=== PATIENT | male | born 1960 | race Caucasian/White ===

== ENCOUNTER 2016-08-30 17:15 | Emergency (ER) | payer MEDICARE, MEDICAID ==
[2016-08-30 17:49] VITALS: BP 137/100
[2016-08-30] MEDS ORDERED: Tetan/Diph/Pertus SYR(Tdap)* 0.5 ML SYR(BOOSTRIX) use SYR IM ONE (19:38)
--- NOTE | 2016-09-08 09:15 | ED ---
Lower Extremity - HPI Summary HPI Summary: Patient complaining of right foot pain after he stepped on a piece of glass on friday. He believes that the glass is stuck inside his right foot, he was sent here for an xray from [facility]. He states he came to the ED because he still feels the glass in his foot. He denies bleeding or pain, stating he just feels funny. Denies taking any medication or attempting to dislodge the piece. - History of Current Complaint Chief Complaint: EDExtremityLower Stated Complaint: RIGHT FOOT LAC/GLASS IN FOOT Time Seen by Provider: 08/30/16 19:30 Hx Obtained From: Patient Mechanism Of Injury: Penetrating Trauma Onset of Pain: Immediate Onset/Duration: Days Severity Initially: Mild Severity Currently: None Pain Intensity: 0 Pain Scale Used: 0-10 Numeric Timing: Constant Location: Is Discrete @ - right plantar of foot Character Of Pain: Dull Associated Signs And Symptoms: Positive: Negative Aggravating Factor(s): Standing, Ambulation Alleviating Factor(s): Rest Able to Bear Weight: Yes - Risk Factors Gout Risk Factors: Age Over 40, Male DVT Risk Factors: Negative Septic Arthritis Risk Factor: Negative - Allergies/Home Medications Allergies/Adverse Reactions: Allergies Allergy/AdvReac Type Severity Reaction Status Date / Time No Known Allergies Allergy Verified 05/22/15 15:45 PMH/Surg Hx/FS Hx/Imm Hx Previously Healthy: Yes Endocrine/Hematology History: Denies: Hx Diabetes Cardiovascular History: Denies: Hx Hypertension History: Denies: Hx Renal Disease - Cancer History Cancer Type, Location and Year: BLADDER 1996 - Surgical History Surgery Procedure, Year, and Place: Appendectomy age 8, bladder surgery 1996, abscesses removed from right middle back 2 months ago Infectious Disease History: No Infectious Disease History: Denies: Traveled Outside the [place] in Last 30 Days - Family History Known Family History: Positive: Cardiac Disease, Hypertension - Social History Occupation: Employed Full-time Lives: Alone Alcohol Use: None Hx Substance Use: No Substance Use Type: Reports: None Hx Tobacco Use: Yes Smoking Status (MU): Current Every Day Smoker Review of Systems Constitutional: Negative Eyes: Negative Cardiovascular: Negative Respiratory: Negative Genitourinary: Negative Positive: no symptoms reported, see HPI Musculoskeletal: Negative Positive: Arthralgia Positive: Other - small FB sensation over right plantar of foot Neurological: Negative All Other Systems Reviewed And Are Negative: Yes Physical Exam Triage Information Reviewed: Yes Vital Signs On Initial Exam: Initial Vitals Temp Pulse Resp BP Pulse Ox 97.7 F 107 18 137/100 99 08/30/16 17:46 08/30/16 17:46 08/30/16 17:46 08/30/16 17:46 08/30/16 17:46 Vital Signs Reviewed: Yes Appearance: Positive: Well-Appearing, No Pain Distress, Well-Nourished Skin: Positive: Warm, Skin Color Reflects Adequate Perfusion, Other - FB sensation in plantar of foot. no FB seen by provider Head/Face: Positive: Normal Head/Face Inspection Eyes: Positive: EOMI, HIMANSHU, Conjunctiva Clear Neck: Positive: Supple, Nontender, No Lymphadenopathy Respiratory/Lung Sounds: Positive: Clear to Auscultation, Breath Sounds Present Cardiovascular: Positive: Normal, RRR, Pulses are Symmetrical in both Upper and Lower Extremities Musculoskeletal: Positive: Normal, Strength/ROM Intact Neurological: Positive: Normal, Sensory/Motor Intact, Alert, Oriented to Person Place, Time Psychiatric: Positive: Normal AVPU Assessment: Alert Procedures - Procedure Summary Procedure Summary: Lidocaine without epi 1% used for local anesthetic. 15 blade scalpel to area of concern. Superficial exploration revealed no FB. Bandaged without need for sutures. Patient encouraged to follow up if signs of infection. Diagnostics - Vital Signs Vital Signs Temp Pulse Resp BP Pulse Ox 08/30/16 20:32 97.7 F 107 18 137/100 99 08/30/16 17:46 97.7 F 107 18 137/100 99 - Laboratory Lab Statement: Any lab studies that have been ordered have been reviewed, and results considered in the medical decision making process. Lower Extremity Course/Dx - Course Course Of Treatment: Patients wound was explored with 15 blade after local anesthetic applied. No FB seen. Patient OK for discharge and thinks possibly the glass shard had dislodged over the week. Patient encouraged to follow up with PCP and return if signs of infection. - Diagnoses Differential Diagnosis/HQI/PQRI: Positive: Cellulitis, Osteomyelitis, Puncture Wound, Other - foreign body Provider Diagnoses: Sensation of foreign body Discharge - Discharge Plan Condition: Stable Disposition: HOME Patient Education Materials: Soft Tissue Foreign Body (ED) Referrals: [facility] [Provider Group] Jesus Gagnon MD [Primary Care Provider] - Additional Instructions: There was nothing visualized in the foot. Continue with bandage for 2 days. Keep area dry and clean. Follow up with your primary care physician.
== END 2016-08-30 22:17 | disposition home or self-care (01) ==
LOC: ED 17:15
DX: S90.851A Superficial foreign body, right foot, initial encounter (principal); X58.XXXA Exposure to other specified factors, initial encounter; Y93.9 Activity, unspecified; Y92.9 Unspecified place or not applicable; Y99.9 Unspecified external cause status
CPT/HCPCS: 90471; 90715; 99282

== ENCOUNTER 2016-10-25 15:56 | Emergency (ER) | payer MEDICARE, MEDICAID ==
[2016-10-25] MEDS ORDERED: NS 0.9% 1000 ML* 1,000 ML IV ONE (16:39)
[2016-10-25 16:50] LABS: Hematocrit 44 % (42-52); Hemoglobin 14.9 g/dl (14.0-18.0); Mean Corpuscular HGB Conc 34 g/dl (31-36); Mean Corpuscular Hemoglobin 30 pg (27-31); Mean Corpuscular Volume 88 fL (80-94); Mean Platelet Volume 7 um3 (7.4-10.4); Red Blood Count 5.05 10^6/ul (4.0-5.4); Red Cell Distribution Width 14 % (10.5-15); White Blood Count 8.1 10^3/ul (3.5-10.8)
[2016-10-25 17:12] LABS: Albumin 4.2 g/dL (3.2-5.2); BUN/Creatinine Ratio 19.3 (8-20); C Reactive Protein 8.63 mg/L (< 5.00); EGFR African American 122.4 (>60); EGFR Non-African American 95.2 (>60); Globulin 2.6 g/dL (2-4); Total Bilirubin 0.6 mg/dL (0.2-1.0); Total Protein 6.8 g/dL (6.4-8.9)
[2016-10-25] MEDS ORDERED: Iohexol 300* (CONTRAST) 10 ML SDV IV ONE (17:21)
[2016-10-25 17:32] LABS: Potassium 4.1 mmol/L (3.5-5.0)
[2016-10-25 18:15] VITALS: BP 125/97
--- NOTE | 2016-10-25 18:49 | RAD ---
CLINICAL HISTORY: Abdominal pain COMPARISON: May 22, 2015 TECHNIQUE: Multiple contiguous axial CT scans were obtained of the abdomen and pelvis after the administration of intravenous contrast. Coronal and sagittal multiplanar reformations are submitted for review. Oral contrast was not administered. Delayed images were obtained through the abdomen and pelvis. FINDINGS: LUNG BASES: The lung bases are clear. LIVER: The liver is normal in shape, size, contour, and attenuation. BILE DUCTS: There is no intrahepatic or extrahepatic biliary dilatation. GALLBLADDER: The gallbladder is normal, without pericholecystic inflammatory change. PANCREAS: The pancreas is normal, without mass or ductal dilatation. SPLEEN: Normal in size and appearance. UPPER GI TRACT: Evaluation of the gastrointestinal tract is limited by incomplete gastric distention. The upper GI tract is unremarkable. SMALL BOWEL AND MESENTERY: The small bowel is normal in contour, course, and caliber. There is no obstruction or dilatation. COLON: There are scattered diverticula of the colon. There is no pericolonic inflammatory change. The appendix is not visualized. There is no inflammatory change in the right lower quadrant. ADRENALS: Normal bilaterally. KIDNEYS: Renal cysts are noted. There is no appreciable hydronephrosis or nephrolithiasis. BLADDER: The bladder is smooth in contour. PELVIC ORGANS: The prostate is diffusely enlarged. The seminal vesicles are symmetric. AORTA: There is calcific atherosclerotic disease of the abdominal aorta and its branches, without aneurysmal dilatation IVC: Unremarkable LYMPH NODES: There is no lymphadenopathy by size criteria. ABDOMINAL WALL: There is no evidence for abdominal wall hernia. BONES AND SOFT TISSUES: There are mild diffuse degenerative changes. OTHER: None IMPRESSION: 1. ENLARGED PROSTATE. 2. ATHEROSCLEROSIS. 3. NO ACUTE CT PATHOLOGY OF THE VISUALIZED ABDOMEN OR PELVIS
--- NOTE | 2016-10-26 17:07 | ED ---
[place] Shoemaker Rebecca, scribed for David Odonnell MD on 10/25/16 at 1617 . Abdominal Pain/Male - HPI Summary HPI Summary: Pt is a 56 y/o M who presents to ED c/o abdominal pain. Pain began gradually last Friday (almost 2 weeks ago) and has been intermittent since onset. Pain is currently in the L suprapubic region with radiation to the groin and down the LLE into the knee. Pain is currently not present, ranked 0/10, [facility] when it is present it is characterized as sharp. Sx aggravated by nothing, alleviated by oxycodone, which he reports as having resolved sx currently. Additionally c/ o cough and sore throat. Denies N/V/D, constipation, CP, SOB, fever and chills. Reports he has been following up with Dr. Juárez's office for similar sx, last being seen approximately 1 week ago. States he called yesterday and they advised him that if his pain did not improve, to be evaluated by the ED which is why he presents today. - History of Current Complaint Chief Complaint: EDAbdPain Stated Complaint: ABD PAIN Time Seen by Provider: 10/25/16 16:08 Hx Obtained From: Patient Onset/Duration: Gradual Onset, Lasting Weeks - 2 weeks, Resolved Timing: Intermittent Severity Initially: Moderate Severity Currently: None Pain Intensity: 0 Pain Scale Used: 0-10 Numeric Location: Suprapubic - Left Radiates: Yes Radiates to: Inguinal, Other - LLE down to the knee Aggravating Factor(s): Nothing Alleviating Factor(s): Medications - Oxycodone Associated Signs And Symptoms: Positive: Cough, Other - sore throat; Denies SOB , chills. Negative: Fever, Chest Pain, Constipation, Nausea, Vomiting, Diarrhea - Allergies/Home Medications Allergies/Adverse Reactions: Allergies Allergy/AdvReac Type Severity Reaction Status Date / Time No Known Allergies Allergy Verified 05/22/15 15:45 Home Medications: Home Medications oxyCODONE TAB* [Roxycodone TAB 5 mg*] 5 mg PO Q8H PRN MDD 15 mg 10/25/16 [ History Confirmed 10/25/16] PMH/Surg Hx/FS Hx/Imm Hx Endocrine/Hematology History: Denies: Hx Diabetes Cardiovascular History: Denies: Hx Hypertension History: Denies: Hx Renal Disease - Cancer History Cancer Type, Location and Year: BLADDER 1996 - Surgical History Surgery Procedure, Year, and Place: Appendectomy age 8, bladder surgery 1996, abscesses removed from right middle back 2 months ago Infectious Disease History: Yes Infectious Disease History: Denies: Traveled Outside the [place] in Last 30 Days - Family History Known Family History: Positive: Cardiac Disease, Hypertension - Social History Alcohol Use: Weekly Substance Use Type: Reports: Marijuana Hx Tobacco Use: Yes Smoking Status (MU): Current Every Day Smoker Amount Used/How Often: 1 PPD Review of Systems Negative: Fever, Chills Positive: Sore Throat Negative: Chest Pain Positive: Cough. Negative: Shortness Of Breath Positive: Abdominal Pain - L suprapubic with radiation to the groin and LLE down to the knee, Other - Denies constipation. Negative: Vomiting, Diarrhea, Nausea All Other Systems Reviewed And Are Negative: Yes Physical Exam - Summary Physical Exam Summary: VITAL SIGNS: Reviewed. GENERAL: Patient is a well-developed and nourished male who is lying comfortable in the stretcher. ~Patient is not in any acute respiratory distress. HEAD AND FACE: Normocephalic and atraumatic. EYES: PERRLA, EOMI x 2, No injected conjunctiva. EARS: Hearing grossly intact. Ear canals and tympanic membranes are WNL. MOUTH: Oropharynx within normal limits. NECK: Supple, trachea is midline, no adenopathy, no JVD. CHEST: Symmetric, no tenderness at palpation LUNGS: Clear to auscultation bilaterally. No wheezing or crackles. CVS: RRR, S1 and S2 present, no murmurs or gallops appreciated. ABDOMEN: Soft, non-tender. No signs of distention. Positive bowel sounds. No rebound no guarding, and no masses palpated. No abdominal bruit or pulsations. EXTREMITIES: FROM in all major joints, no edema, no cyanosis or clubbing. NEURO: Alert and oriented x 3. No acute neurological deficits. Speech is normal. SKIN: Dry and warm : Circumcised penis, both testicles are descended. No masses are appreciated. Positive cremasteric reflex. Triage Information Reviewed: Yes Vital Signs On Initial Exam: Initial Vitals Temp Pulse Resp BP Pulse Ox 97.3 F 95 20 128/90 97 10/25/16 16:04 10/25/16 16:04 10/25/16 16:04 10/25/16 16:04 10/25/16 16:04 Vital Signs Reviewed: Yes Diagnostics - Vital Signs Vital Signs Temp Pulse Resp BP Pulse Ox 10/25/16 16:04 97.3 F 95 20 128/90 97 - Laboratory Lab Results: Lab Results 10/25/16 10/25/16 10/25/16 Range/Units 16:40 16:40 16:40 WBC 8.1 (3.5-10.8) 10^3/ul RBC 5.05 (4.0-5.4) 10^6/ul Hgb 14.9 (14.0-18.0) g/dl Hct 44 (42-52) % MCV 88 (80-94) fL MCH 30 (27-31) pg MCHC 34 (31-36) g/dl RDW 14 (10.5-15) % Plt Count 265 (150-450) 10^3/ul MPV 7 L (7.4-10.4) um3 Neut % (Auto) 55.3 (38-83) % Lymph % (Auto) 31.0 (25-47) % Pierce % (Auto) 7.0 (1-9) % Eos % (Auto) 5.2 (0-6) % Baso % (Auto) 1.5 (0-2) % Absolute Neuts (auto) 4.5 (1.5-7.7) 10^3/ul Absolute Lymphs (auto) 2.5 (1.0-4.8) 10^3/ul Absolute Monos (auto) 0.6 (0-0.8) 10^3/ul Absolute Eos (auto) 0.4 (0-0.6) 10^3/ul Absolute Basos (auto) 0.1 (0-0.2) 10^3/ul Absolute Nucleated RBC 0.01 10^3/ul Nucleated RBC % 0.1 Sodium 137 (133-145) mmol/L Potassium 4.1 (3.5-5.0) mmol/L Chloride 105 (101-111) mmol/L Carbon Dioxide 26 (22-32) mmol/L Anion Gap 6 (2-11) mmol/L BUN 16 (6-24) mg/dL Creatinine 0.83 (0.67-1.17) mg/dL Est GFR ( Amer) 122.4 (>60) Est GFR (Non-Af Amer) 95.2 (>60) BUN/Creatinine Ratio 19.3 (8-20) Glucose 93 (70-100) mg/dL Lactic Acid 1.3 (0.5-2.0) mmol/L Calcium 10.0 (8.6-10.3) mg/dL Total Bilirubin 0.60 (0.2-1.0) mg/dL AST 18 (13-39) U/L ALT 10 (7-52) U/L Alkaline Phosphatase 79 (34-104) U/L C-Reactive Protein 8.63 H (< 5.00) mg/L Total Protein 6.8 (6.4-8.9) g/dL Albumin 4.2 (3.2-5.2) g/dL Globulin 2.6 (2-4) g/dL Albumin/Globulin Ratio 1.6 (1-3) Lipase 122 H (11.0-82.0) U/L Result Diagrams: 10/25/16 16:40 10/25/16 16:40 Lab Statement: Any lab studies that have been ordered have been reviewed, and results considered in the medical decision making process. - CT Abd/Pel CT CT Interpretation Completed By: Radiologist - 1. ENLARGED PROSTATE. 2. ATHEROSCLEROSIS. 3. NO ACUTE CT PATHOLOGY OF THE VISUALIZED ABDOMEN OR PELVIS - EKG 0801 Cardiac Rate: NL - 69 bpm EKG Rhythm: Sinus Rhythm EKG Interpretation: No ST elevations Abdominal Pain Fem Course/Dx - Course Assessment/Plan: Pt is a 56 y/o M who presents to ED c/o abdominal pain. Pain began gradually last Friday (almost 2 weeks ago) and has been intermittent since onset. Pain is currently in the L suprapubic region with radiation to the groin and down the LLE into the knee. Pain is currently not present, ranked 0/10 , [facility] when it is present it is characterized as sharp. Sx aggravated by nothing, alleviated by oxycodone, which he reports as having resolved sx currently. Additionally c/o cough and sore throat. Denies N/V/D, constipation, CP, SOB, fever and chills. Reports he has been following up with Dr. Juárez' s office for similar sx, last being seen approximately 1 week ago. States he called yesterday and they advised him that if his pain did not improve, to be evaluated by the ED which is why he presents today. Test results WNL except CRP of 8.63, lipase 122. Seeing as patient has Hx of bladder CA, I decided to do a CT Abd/Pel which revealed 1. ENLARGED PROSTATE. 2. ATHEROSCLEROSIS. 3. NO ACUTE CT PATHOLOGY OF THE VISUALIZED ABDOMEN OR PELVIS. In the ED course, the patient was asymptomatic. The patient does not have any N/V or abdominal pain. Therefore, he will be D/C to home with a follow up with his PCP. He is hemodynamically stable and A&Ox3. - Diagnoses Differential Diagnosis/HQI/PQRI: Appendicitis, Bowel Obstruction, Constipation, Diverticulitis Provider Diagnoses: Chronic abdominal pain Discharge - Discharge Plan Condition: Stable Disposition: HOME Patient Education Materials: Abdominal Pain (ED) Referrals: Jesus Gagnon MD [Primary Care Provider] - 3 Days The documentation as recorded by the [place] junior Rebecca accurately reflects the service I personally performed and the decisions made by me, David Odonnell MD.
== END 2016-10-25 19:07 | disposition home or self-care (01) ==
LOC: ED 15:56
DX: R10.32 Left lower quadrant pain (principal); N40.0 Benign prostatic hyperplasia without lower urinary tract symptoms; R05 Cough; J02.9 Acute pharyngitis, unspecified; Z85.51 Personal history of malignant neoplasm of bladder; F12.90 Cannabis use, unspecified, uncomplicated
CPT/HCPCS: 36415; 74177; 80053; 83605; 83690; 85025; 86140; 93005; 96360; 99282; Q9967